=== PATIENT | female | born 1985 | race Caucasian/White ===

== ENCOUNTER 2017-09-30 08:47 | Emergency (ER) | payer BC, OTHER ==
[2017-09-30 09:18] VITALS: BP 134/83
--- NOTE | 2017-09-30 09:30 | UC ---
Ear Complaint HPI - HPI Summary HPI Summary: RIGHT EAR PAIN X 1 DAYS + COLD SYMPTOMS WITH NASAL CONGESTION , PND X 5 DAYS NO FEVER, NO CHILLS - History of Current Complaint Chief Complaint: UCRespiratory Stated Complaint: EARS/SINUS Time Seen by Provider: 09/30/17 09:24 Hx Obtained From: Patient Hx Last Menstrual Period: 3 yrs ?: No Onset/Duration: Gradual Onset, Lasting Days - 1, Still Present Severity Initially: Moderate Severity Currently: Moderate Aggravating Factors: Nothing Alleviating Factors: Nothing Associated Signs/Symptoms: Positive: URI Symptoms - Allergies/Home Medications Allergies/Adverse Reactions: Allergies Allergy/AdvReac Type Severity Reaction Status Date / Time seasonal Allergy Eyes Uncoded 09/30/17 09:18 Itchy/Swollen/Red/Watery Home Medications: Home Medications Dextromethorphan-Phenylephrine [Vicks Dayquil Cold & Flu 10-5-325 mg/15Ml] 1 liq PO Q4H PRN 09/30/17 [History Confirmed 09/30/17] Levonorgestrel (Iud) [Mirena IUD] 20 mcg IU SEE INSTRUCTIONS 09/30/17 [History Confirmed 09/30/17] Kcoyyzkemhcob-Dmhlxbunnf-Nwhak [Nyquil Severe Cold/Flu 5-6.25-10-325 mg/15Ml] 1 liq PO BEDTIME PRN 09/30/17 [History Confirmed 09/30/17] PMH/Surg Hx/FS Hx/Imm Hx Previously Healthy: Yes - Surgical History Surgical History: Yes Surgery Procedure, Year, and Place: wisdom teeth - Family History Known Family History: Negative: Diabetes - Social History Alcohol Use: Daily Alcohol Amount: 1 Substance Use Type: None Smoking Status (MU): Never Smoked Tobacco Review of Systems Constitutional: Negative Skin: Negative Eyes: Negative ENT: Ear Ache, Nasal Discharge Respiratory: Negative Cardiovascular: Negative Gastrointestinal: Negative Is Patient Immunocompromised?: No All Other Systems Reviewed And Are Negative: Yes Physical Exam Triage Information Reviewed: Yes Appearance: Well-Appearing, No Pain Distress, Well-Nourished Vital Signs: Initial Vital Signs Temp 99.3 F 09/30/17 09:09 Pulse 92 09/30/17 09:09 Resp 18 09/30/17 09:09 BP 134/83 09/30/17 09:09 Pulse Ox 99 01/18/18 09:09 Vital Signs Reviewed: Yes Eyes: Positive: Conjunctiva Clear ENT: Positive: Normal ENT inspection, Hearing grossly normal, Pharynx normal, Nasal drainage, TM bulging - RIGHT, TM red - RIGHT Neck exam: Normal Neck: Positive: Supple, Nontender, No Lymphadenopathy Respiratory: Positive: Chest non-tender, Lungs clear, Normal breath sounds Cardiovascular: Positive: RRR, No Murmur, Pulses Normal Ear Complaint Course/Dx - Differential Dx/Diagnosis Provider Diagnoses: OTITIS MEDIA Discharge - Discharge Plan Condition: Stable Disposition: HOME Prescriptions: Amoxicillin PO (*) [Amoxicillin 875 MG (*)] 875 mg PO BID #20 tab Patient Education Materials: Otitis Media (ED) Referrals: Non Staff,Doctor [Primary Care Provider] - 7 Days
== END 2017-09-30 09:31 | disposition home or self-care (01) ==
LOC: UCCORT 08:47
DX: H66.91 Otitis media, unspecified, right ear (principal); R09.81 Nasal congestion
CPT/HCPCS: 99202; G0463

== ENCOUNTER 2021-10-17 22:41 | Inpatient (IN) ==
[2021-10-17] MEDS ORDERED: OBEPIDURAL 250 ML EPIDURAL SCH (23:45)
[2021-10-17] MEDS ORDERED: Lactated Ringers 1000 ml BAG 1,000 ML IV SCH ×2 (23:45)
[2021-10-17] MEDS ORDERED: Lactated Ringers 1000 ml BAG 1,000 ML IV ONE ×2 (23:46)
[2021-10-17] MEDS ORDERED: Buffered Lidocaine 1% SYRIN 1 ml INTRADERM ONE (23:46)
[2021-10-17] MEDS ORDERED: Sodium Citrate/Citric Acid LIQ 15 ML UDC PO PRN (23:46)
[2021-10-17] MEDS ORDERED: Phenylephrine 40 mcg/mL 10mL (400mcg) SYRINGE IV PUSH PRN ×2 (23:46)
[2021-10-17] MEDS ORDERED: OBEPIDURAL 250 ML EPIDURAL ONE (23:50)
[2021-10-17 23:56] LABS: ABS Basophils 0.1 10^3/ul (0-0.2); ABS Eosinophils 0.1 10^3/ul (0-0.6); ABS Lymphocytes 2.8 10^3/ul (1.0-4.8); ABS Monocytes 1.1 10^3/ul (0-0.8); ABS Neutrophils 8.2 10^3/ul (1.5-7.7); Hematocrit 41 % (35-47); Hemoglobin 13.4 g/dL (12.0-16.0); Lymphocyte % 22.7 %; Mean Corpuscular HGB Conc 33 g/dL (31-36); Mean Corpuscular Hemoglobin 30 pg (27-31); Mean Corpuscular Volume 90 fL (80-97); Mean Platelet Volume 10.9 fL (7.4-10.4); Nucleated Red Blood Cells % 0.1; Platelet Count 180 10^3/uL (150-450); Red Blood Count 4.49 10^6 /uL (3.70-4.87); Red Cell Distribution Width 15 % (10-15); White Blood Count 12.2 10^3/uL (3.5-10.8)
[2021-10-18 01:48] LABS: Urine Appearance Cloudy; Urine Bilirubin Negative (Negative); Urine Blood 2+ (Negative); Urine Color Yellow; Urine Glucose Negative (Negative); Urine Ketones Negative (Negative); Urine Nitrite Negative (Negative); Urine Protein Negative (Negative); Urine Urobilinogen Negative (Negative)
[2021-10-18 02:13] LABS: Urine Bacteria 1+ (Absent); Urine Granular Casts Present (Absent); Urine Red Blood Cell Trace(0-2/hpf) (Absent); Urine Squamous Epithelial Cell Present (Absent); Urine White Blood Cell 3+(>20/hpf) (Absent)
[2021-10-18 02:23] LABS: Urine Benzodiazepine Screen None Detected (None Detect); Urine Cannabinoids Screen None Detected (None Detect); Urine Opiates Screen None Detected (None Detect)
[2021-10-18] MEDS ORDERED: Witch Hazel PAD JAR TOPICAL PRN (06:32)
[2021-10-18] MEDS ORDERED: Glycerin ADULT 2.4 gm SUPP PR PRN (06:32)
[2021-10-18] MEDS ORDERED: Dibucaine 1% OINT 28.35 GM TUBE PR PRN (06:32)
[2021-10-18] MEDS ORDERED: Lidocaine 1% VIAL 10 MG/ML VIAL ONE (09:53)
[2021-10-18] MEDS ORDERED: RHO D Immune Globulin (HUMAN) 300 MCG = 1,500 I.U. INJ IM PRN (12:30)
[2021-10-19 07:30] LABS: ABS Basophils 0.1 10^3/ul (0-0.2); ABS Eosinophils 0.1 10^3/ul (0-0.6); ABS Lymphocytes 2.1 10^3/ul (1.0-4.8); ABS Monocytes 0.8 10^3/ul (0-0.8); ABS Neutrophils 8.2 10^3/ul (1.5-7.7); Eosinophil % 0.9 %; Hematocrit 33 % (35-47); Hemoglobin 11.3 g/dL (12.0-16.0); Lymphocyte % 18.9 %; Mean Corpuscular HGB Conc 34 g/dL (31-36); Mean Corpuscular Hemoglobin 31 pg (27-31); Mean Corpuscular Volume 91 fL (80-97); Mean Platelet Volume 10.7 fL (7.4-10.4); Platelet Count 156 10^3/uL (150-450); Red Blood Count 3.66 10^6 /uL (3.70-4.87); Red Cell Distribution Width 15 % (10-15); White Blood Count 11.3 10^3/uL (3.5-10.8)
[2021-10-19 08:17] VITALS: BP 109/65
== END 2021-10-19 12:05 | disposition home or self-care (01) | DRG 560 ==
LOC: MCHOBOUT 22:41 → MCHOB 23:28
PROVIDERS: ADMIT Midwife; ATTEND Midwife